=== PATIENT | male | born 2000 | race Caucasian/White ===

== ENCOUNTER 2019-05-27 14:17 | Emergency (ER) | payer OTHER ==
[~2019-05-27] VITALS: Ht 180.3 cm; Wt 105.6 kg
[2019-05-27 14:27] VITALS: BP 116/71; TEMP 98.2
[2019-05-27] MEDS ORDERED: NAPROXEN 3375 MG/TAB PO (16:28)
[2019-05-27 17:04] VITALS: PULSE 66
== END 2019-05-27 17:04 | disposition home or self-care (01) ==
LOC: COL.ER 14:17
DX: S80.02XA Contusion of left knee, initial encounter (principal); W10.8XXA Fall (on) (from) other stairs and steps, initial encounter